=== PATIENT | male | born 1955 | race Caucasian/White ===

== ENCOUNTER 2024-02-14 15:37 | Emergency (ER) | payer OTHER, SELFPAY ==
[2024-02-14 15:47] VITALS: BP 132/83
[2024-02-14 16:07] LABS: % Basophils 0.7 % (0-2); % Eosinophils 1.7 % (0-6); % Immature Granulocytes 0.2 % (0-0.5); % Lymphocytes 22.3 % (20.5-51.1); % Monocytes 8.7 % (1.7-9.3); % Neutrophils 66.4 % (42.2-75.2); Absolute Basophils 0.1 10^3/uL (0-0.2); Absolute Eosinophils 0.1 10^3/uL (0-0.7); Absolute Lymphocytes 1.8 10^3/uL (1.2-3.4); Absolute Monocytes 0.7 10^3/uL (0.1-0.6); Absolute Neutrophils 5.4 10^3/uL (1.4-6.5); Hematocrit 46.7 % (39.0-52.0); Hemoglobin 16.7 g/dL (13.0-18.0); Mean Corp Hgb Conc. 35.8 g/dL (33.0-37.0); Mean Corpuscular Hgb 32.4 pg (27.0-31.0); Mean Corpuscular Volume 90.5 fL (80.0-94.0); Mean Platelet Volume 10.8 fL (7.4-10.4); Nucleated Red Blood Cells % 0 % (-); Platelet Count 242 10^3/uL (130-400); Red Blood Cell Count 5.16 10^6/uL (4.70-6.10); Red Cell Dist. Width 12.3 % (11.5-14.5); White Blood Cell Count 8.2 10^3/uL (4.8-10.8)
[2024-02-14 16:25] LABS: ALT (SGPT) 24 U/L (0-50); AST (SGOT) 30 U/L (17-59); Albumin 4.2 g/dl (3.5-5.0); Alkaline Phosphatase 88 U/L (38-126); Blood Urea Nitrogen 25 mg/dl (9-20); Calcium 9.6 mg/dl (8.4-10.2); Carbon Dioxide 23 mmol/L (22-30); Chloride 108 mmol/L (98-107); Glucose 103 mg/dl (70-99); Sodium 144 mmol/L (135-145); Total Bilirubin 0.5 mg/dl (0.2-1.3); eGFR > 60.00
[2024-02-14 16:29] LABS: NT-proBNP 378 pg/ml; Troponin I < 0.012 ng/ml
--- NOTE | 2024-02-14 17:08 | ED.GENMED ---
History of Present Illness
General
Chief Complaint: Cardiac Symptoms
Time Seen by Provider: 02/14/24 17:08
History of Present Illness
History of Present Illness:
HPI: Patient was sent here by cardiology for further evaluation. He has been having palpitations with some dizziness. He was at his business intelligence administrator office, Dr. Jose Angel Anderson, approximately 3 weeks ago. At that time there was some discussion about
ablation. He states that he has had a cardioversion in the past which failed. He is currently taking Lasix in addition to Toprol and no longer takes amiodarone.
EXAM:
GENERAL: Well appearing in no distress
HEENT: Moist oral mucosa
CARDIOVASCULAR: No murmurs, borderline tachycardic heart rate (rates frequently in the 80s to 110 range), irregular rhythm, No chest wall tenderness
PULMONARY: No respiratory distress, breath sounds are clear and equal
ABDOMEN: Soft with no peritoneal signs, no tenderness
NEUROLOGIC: Excellent strength all extremities, no coordination deficits
PSYCHIATRIC: Appropriate mental status, normal insight and judgement
EXTREMITIES: Nontender, no edema, moves all extremities equally, trace ankle edema, trace swelling at the toes with some hyperemia noted at the great toes, excellent DP pulses bilaterally with cap refill less than 1
SKIN: No rash, no lesions
TIME OF INITIAL ENCOUNTER: 5:10 PM
NUMBER AND COMPLEXITY OF PROBLEMS ADDRESSED AT THE ENCOUNTER
� Chronic conditions affecting care: Atrial fibrillation, CHF
� Acute Exacerbation and/or Progression of Chronic Illness: This is an acute problem
� Differential Diagnosis includes: Atrial fibrillation, gout, CHF
AMOUNT AND/OR COMPLEXITY OF DATA TO BE REVIEWED AND ANALYZED
� I performed an independent evaluation of and my interpretation is:
EKG: A-fib/flutter, ventricular rate of 105, PVC
CT:
X-rays:
Laboratory Studies: Chemistries relatively unremarkable however the BUN is 25, troponin and BNP unremarkable, normal white count, hemoglobin 16.7 up from 2020 was 12.8
Other:
� Review of other/old records: The patient was seen here in 2020 with dyspnea and was seen by Dr. Thomas at that time
� Clinical information was obtained by an independent historian: I spoke to the at bedside.
� Prescriptions/Medications Considered but not given: Considered Cardizem/cardioversion however ultimately deferred management to the business intelligence administrator
� Further testing considered but not performed:
RISK OF COMPLICATIONS AND/OR MORBIDITY OR MORTALITY OF PATIENT MANAGEMENT
� Social determinants of health affecting care: Lives at home
� Discussion with other providers: Discussed with Dr. Vazquez
� Escalation of care including admission/observation vs risk of discharge considered: Cardiology recommend doubling the Toprol he is to follow-up with Dr. Thomas by calling them tomorrow. He had been in atrial fibrillation on
last cardiology visit about 3 weeks ago. He is currently in atrial fibrillation/atrial flutter but rates frequently in the 80s while in the emergency department. No overwhelming signs for CHF. Will add steroids as he has been successfully treated
with this for gout in the past and he tells me that the pain feels similar to gout.
Past History
Past History
ED Past Medical History: None, Other (A fib) and Other (Nonischemic cardiomyopathy, PAF PA flutter status post PVI, hypertension, hyperlipidemia, GERD, obesity)
ED Past Surgical History: None
Social History
Tobacco: Non-smoker
Alcohol: Occasional
Personal:
Family History
Family History: Negative Diabetes, Hypertension or CAD
Phy Exam
Physical Exam
Physical Exam:
See HPI
Course
Orders/Labs/Results
Orders:
Orders
02/14/24 15:39
ECG [Electrocardiogram (*1)] Urgent
Reason for Study: Palpitations
EKG- Treatment ONCE
02/14/24 15:57
Complete Blood Count/With Diff Urgent
Comprehensive Metabolic Panel Urgent
NT-proBNP Urgent
Troponin I Urgent
02/14/24 17:43
Metoprolol Xl [Toprol Xl] 50 mg PO NOW STA
Prednisone [Deltasone] 50 mg PO NOW STA
Abnormal Lab Results
02/14/24
15:57
MCH 32.4 H pg
(27.0-31.0)
MPV 10.8 H fL
(7.4-10.4)
Absolute Monos (auto) 0.7 H 10^3/uL
(0.1-0.6)
Chloride 108 H mmol/L
(98-107)
BUN 25 H mg/dl
(9-20)
Glucose 103 H mg/dl
(70-99)
02/14/24 15:57
02/14/24 15:57
Vital Signs
Initial and Last Documented VS:
Initial Vital Signs
Temp Pulse Resp BP Pulse Ox
98.1 F 106 18 132/83 98
02/14/24 15:47 02/14/24 15:47 02/14/24 15:47 02/14/24 15:47 02/14/24 15:47
Last Documented Vital Signs
Temp Pulse Resp BP Pulse Ox
98.1 F 114 24 113/88 97
02/14/24 15:47 02/14/24 17:12 02/14/24 17:15 02/14/24 17:12 02/14/24 17:15
*Critical Care Note
Total Time (30-74mins, 75-104mins- exclusive of procedures): Not Applicable
ED Attending Note
-
Portions of this chart may have been created with voice recognition software.� Occasional wrong word or��sound alike� substitutions may have occurred due to the inherent limitations of voice recognition software.
Discharge Plan
Departure
Patient Disposition: Home (Routine Discharge)
Date of Disposition: 02/14/24
Time of Disposition: 17:48
Patient with high blood pressure during this ER visit?: Yes
Discharge Problem:
Atrial fibrillation
Prescriptions:
New
prednisone 50 mg tablet
50 mg PO DAILY Qty: 4 0RF
No Action
pantoprazole 40 MG tablet,delayed release (DR/EC)
40 mg PO DAILY Qty: 30 0RF
apixaban [Eliquis] 5 MG tablet
5 mg PO BID Qty: 60 0RF
atorvastatin 10 MG tablet
20 mg PO QPM
metoprolol succinate [Toprol XL] 50 MG tablet extended release 24 hr
50 mg PO DAILY
furosemide [Lasix] 40 MG tablet
40 mg PO DAILY Qty: 30 11RF
Referrals:
Bronson Thomas MD [Active] - Follow up in 2-3 days
Activity Restrictions/Additional Instructions:
You are in atrial tachycardia/atrial fibrillation currently. Your white blood cell count and hemoglobin levels are normal. Your basic chemistry levels are normal. Cardiac blood work shows no sign of heart attack or any signs of congestive heart
failure. Given the possibly of gout, we can try steroids for a few more days. I spoke to Dr. Vazquez, business intelligence administrator on-call for Dr. Thomas who recommends doubling the Toprol dosing�he recommends you take 1 in the morning 1 in the evening.
Please call Dr. Thomas's office to arrange follow-up.
Interventions
Interventions:
*Risk Screen - Suicide Last Done: 02/14/24 15:47
*Neglect/Abuse Screening Last Done: 02/14/24 15:47
Discharge Date and Time
Print Language: COLOMBIAN
[2024-02-14 17:12] VITALS: BP 113/88
[2024-02-14 17:54] VITALS: BP 113/88
[2024-02-14 18:04] VITALS: BMI 37.6
[2024-02-14] MEDS: DELTASONE 50 MG PO (18:04)
[2024-02-14] MEDS: TOPROL XL 50 MG PO (18:24)
== END 2024-02-14 18:34 | disposition home or self-care (01) ==
LOC: EMR 15:37
PROVIDERS: Student in an Organized Health Care Education/Training Program; EMERGENCY PHYSICIAN Emergency Medicine; FAMILY PHYSICIAN Family Medicine
DX: I48.91 Unspecified atrial fibrillation (principal); I11.0 Hypertensive heart disease with heart failure; I50.9 Heart failure, unspecified; E66.9 Obesity, unspecified; E78.00 Pure hypercholesterolemia, unspecified; K21.9 Gastro-esophageal reflux disease without esophagitis
CPT/HCPCS: 99283; 80053; 83880; 84484; 85025; 93005

== ENCOUNTER 2024-03-01 15:53 | Emergency (ER) | payer OTHER, SELFPAY ==
[2024-03-01 16:03] VITALS: BP 140/85
[2024-03-01] MEDS: ADACEL 0.5 ML IM (17:58)
[2024-03-01] MEDS: KEFLEX 500 MG PO (17:58)
--- NOTE | 2024-03-01 18:00 | ED.GENMED ---
History of Present Illness
General
Chief Complaint: Skin Surface Trauma
Source: patient
Exam Limitations: none
Time Seen by Provider: 03/01/24 16:36
Nursing documentation reviewed up to this point in time: agreed with
History of Present Illness
History of Present Illness:
69-year-old male past medical history of A-fib currently taking Eliquis no history of immunosuppression or diabetes. Presenting to the emergency department after hitting his left quiroz on a steel pen prior to arrival causing a laceration to his left
leg. He is able to control the bleeding with pressure prior to arrival.
Past History
Past History
ED Past Medical History: None, Other (A fib) and Other (Nonischemic cardiomyopathy, PAF PA flutter status post PVI, hypertension, hyperlipidemia, GERD, obesity)
ED Past Surgical History: None
Social History
Tobacco: Non-smoker
Alcohol: Occasional
Personal:
Family History
Family History: Negative Diabetes, Hypertension or CAD
Review of Systems
Review of Systems
Allergies reviewed?: Yes
All Other Systems: ROS reviewed and negative except as documented in HPI and ROS
Phy Exam
Physical Exam
Physical Exam:
GENERAL: Alert , in no apparent distress
EYE: pupils equal and reactive
NECK: Supple, no significant adenopathy.
ENT: o/p clr, mmm.
CARDIAC: Regular rate and rhythm .
LUNGS: Clear breath sounds bilaterally, no acute respiratory distress, no wheezes/rales/rhonchi
ABDOMEN: Soft, without focal tenderness, no r/g, no cvat
NEUROLOGICAL: Alert and oriented, no focal neuro deficits
SKIN: 15 cm U-shaped laceration, flap subcutaneous in depth no foreign body seen to the left anterior quiroz at the mid quiroz warm and dry, skin intact.
MUSCULOSKELETAL: No edema, well perfused.
PSYCH: Normal and appropriate interaction.
Course
Orders/Labs/Results
Orders:
Orders
03/01/24 16:48
Cephalexin Monohydrate [Keflex] 500 mg PO NOW STA
Tetanus/Diphth/Acelpertussis [Adacel] 0.5 ml IM .ONCE ONE
Vital Signs
Initial and Last Documented VS:
Initial Vital Signs
Temp Pulse Resp BP Pulse Ox
97.9 F 55 20 140/85 94
03/01/24 16:03 03/01/24 16:03 03/01/24 16:03 03/01/24 16:03 03/01/24 16:03
Last Documented Vital Signs
Temp Pulse Resp BP Pulse Ox
97.9 F 47 18 129/69 96
03/01/24 16:03 03/01/24 18:06 03/01/24 18:06 03/01/24 18:06 03/01/24 18:06
Procedures
Laceration Closure
Left Anterior Distal Leg:
Status of Wound: clean
Size of Wound in cm: 15
Description of Wound Edges: sharp
Preparation: cleaned with saline
Anesthesia: 1% Lidocaine with epi
Revision/Debridement: routine- no revision and irrigate-direct pressure
Wound exploration: explored to base- no FB and no tendon involvement
Type of Closure: single layer closure
Skin Closure Material: 3-0 nylon
Number of sutures: 21
MDM/Problems Addressed
MDM/Problems Addressed:
69year-old male presenting to the emergency department today with concerns of laceration to his left sided quiroz. This is a large flap 15 cm in total size. No foreign body seen cleaned thoroughly closed with 21 total stitches 18 simple interrupted
and 3 horizontal mattress stitches. Neurovascular intact distally. He started on antibiotics as well as given a tetanus shot. Return precautions given otherwise advised for removal in 2 weeks.
*Critical Care Note
Total Time (30-74mins, 75-104mins- exclusive of procedures): Not Applicable
ED Attending Note
-
Portions of this chart may have been created with voice recognition software.� Occasional wrong word or��sound alike� substitutions may have occurred due to the inherent limitations of voice recognition software.
Discharge Plan
Departure
Patient Disposition: Home (Routine Discharge)
Date of Disposition: 03/01/24
Time of Disposition: 18:17
Patient with high blood pressure during this ER visit?: No
Condition: Good
Covid-19: Not Applicable
Discharge Problem:
Laceration of quiroz
Instructions: Laceration Repair With Stitches (DC)
Prescriptions:
New
cephalexin 500 mg capsule
500 mg PO TID 3 Days Qty: 9 0RF
No Action
pantoprazole 40 MG tablet,delayed release (DR/EC)
40 mg PO DAILY Qty: 30 0RF
apixaban [Eliquis] 5 MG tablet
5 mg PO BID Qty: 60 0RF
atorvastatin 10 MG tablet
20 mg PO QPM
metoprolol succinate [Toprol XL] 50 MG tablet extended release 24 hr
50 mg PO DAILY
furosemide [Lasix] 40 MG tablet
40 mg PO DAILY Qty: 30 11RF
prednisone 50 mg tablet
50 mg PO DAILY Qty: 4 0RF
Referrals:
Chiki Mantilla DO [Family Provider] -
Activity Restrictions/Additional Instructions:
You came to the emergency department today with concerns of laceration to your chin. This was cleaned and closed with 21 total stitches. 18 simple interrupted and 3 horizontal mattress. Please keep the area clean covered and follow-up 2 days for
suture removal. Return to the emergency department for any worsening, new or concerning symptoms. Please also take Keflex 3 times daily for the next 3 days
Interventions
Interventions:
*Risk Screen - Suicide Last Done: 03/01/24 16:03
*General Assessment Last Done: 03/01/24 16:03
*Neglect/Abuse Screening Last Done: 03/01/24 16:03
ED-Skin Assessment Last Done: 03/01/24 16:51
Discharge Date and Time
Print Language: FAROESE
[2024-03-01 18:06] VITALS: BP 129/69
== END 2024-03-01 18:53 | disposition home or self-care (01) ==
LOC: EMR 15:53
PROVIDERS: EMERGENCY PHYSICIAN Emergency Medicine; FAMILY PHYSICIAN Family Medicine
DX: S81.812A Laceration without foreign body, left lower leg, initial encounter (principal); W22.8XXA Striking against or struck by other objects, initial encounter; I48.91 Unspecified atrial fibrillation; Z79.01 Long term (current) use of anticoagulants; I10 Essential (primary) hypertension; E78.5 Hyperlipidemia, unspecified; Z23 Encounter for immunization
CPT/HCPCS: 12005; 99282; 90471; 90715

== ENCOUNTER → 2024-08-15 09:16 | Outpatient (REF) | payer OTHER, SELFPAY ==
--- NOTE | 2024-08-15 10:08 | CARDSERVDEF ---
Echocardiogram with Definity completed after protocol screening completed. Allergies verified.
Patent IV site: 22g inserted in RAC - 1st attempt without incident
IV site flushed with 0.9% NaCl pre and post administration.
Diluted bolus method utilized to enhance visualization of ventricular arango.
Total volume given: 3.5 mL
Patient tolerated all procedures well without complications.
IV d/c'd and bandage applied after pressure held
== END ==
LOC: RCS 09:16
PROVIDERS: ATTENDING PHYSICIAN Internal Medicine; FAMILY PHYSICIAN Family Medicine
DX: I42.8 Other cardiomyopathies (principal); I50.32 Chronic diastolic (congestive) heart failure
CPT/HCPCS: 93307; Q9957

== ENCOUNTER 2025-01-26 19:38 | Emergency (ER) | payer OTHER, SELFPAY ==
[2025-01-26 19:39] VITALS: BP 130/85
[2025-01-26 20:00] VITALS: BMI 37.6
[2025-01-26 20:04] VITALS: BP 102/62
[2025-01-26 20:19] LABS: Hematocrit 42.8 % (39.0-52.0); Hemoglobin 15.1 g/dL (13.0-18.0); Mean Corp Hgb Conc. 35.3 g/dL (33.0-37.0); Mean Corpuscular Volume 91.8 fL (80.0-94.0); Nucleated Red Blood Cells % 0 % (-); Platelet Count 212 10^3/uL (130-400); Red Cell Dist. Width 13.4 % (11.5-14.5)
[2025-01-26 20:42] LABS: Alkaline Phosphatase 81 U/L (38-126); Blood Urea Nitrogen 26 mg/dl (9-20); Calcium 9.3 mg/dl (8.4-10.2); Carbon Dioxide 25 mmol/L (22-30); Chloride 109 mmol/L (98-107); Estimated Creatinine Clearance 82 ml/min; Glucose 102 mg/dl (70-99); Potassium 4.3 mmol/L (3.5-5.1); Sodium 139 mmol/L (135-145); eGFR > 60.00
[2025-01-26 20:43] LABS: ALT (SGPT) 32 U/L (0-50); AST (SGOT) 38 U/L (17-59); Albumin 4.0 g/dl (3.5-5.0); Total Protein 6.6 g/dl (6.3-8.2)
[2025-01-26 21:18] VITALS: BP 105/66
[2025-01-26 22:00] VITALS: BP 107/58
[2025-01-26 23:00] VITALS: BP 106/71
--- NOTE | 2025-01-26 23:39 | ED.CVA ---
History of Present Illness
General
Chief Complaint: CVA/TIA Symptoms
Source: patient and family
Time Seen by Provider: 01/26/25 20:15
Onset of Stroke Symptoms
Onset of symptoms known: Yes
Date of onset of symptoms: 01/25/25
History of Present Illness
History of Present Illness:
Note:
CHIEF COMPLAINT(S)
Sideways vision and dizziness.
HISTORY OF PRESENT ILLNESS
The patient is a 70-year-old male presenting with an unusual episode that occurred the previous day. While driving, he experienced a sudden alteration in vision, describing it as if his entire visual field turned sideways. The patient reported no
double vision or loss of vision, but the entire perspective shifted. This episode of visual disturbance resolved quickly within approximately 10 seconds. However, following the visual distortion, he felt dizzy and staggered, likening his sensation
to being inebriated. This dizziness persisted for approximately 15 minutes. After this event, as the day progressed, his symptoms improved. The patient also mentioned numbness and tingling in his left arm and has a known history of neuropathy in his
feet, experiencing these symptoms for several months. He is on blood thinners (Eliquis) and reports a baseline heart rate typically within the 50s to 60s. The current heart rate of 46 was noted to be slower than usual, likely due to the Metoprolol
50 mg dosage.
ADDITIONAL HISTORY OBTAINED FROM SOURCES OTHER THAN THE PATIENT
The patients spouse noted he had been more lethargic and experiencing shortness of breath over the last day or two prior to the visit.
CHRONIC MEDICAL CONDITIONS SIGNIFICANTLY AFFECTING CARE
The patient has a history of peripheral neuropathy and is on Metoprolol for heart rate management.
MEDICATIONS
The patient is currently taking Metoprolol 50 mg once daily and Eliquis (Apixaban).
REVIEW OF SYSTEMS
- Neurological: Reports dizziness, no headaches, no significant motor weakness.
- Cardiovascular: Slightly slow heart rate.
- Vision: Sideways vision episode.
- General: Lethargic recently, with shortness of breath.
PHYSICAL EXAM
General: Alert, no acute distress.
Skin: Warm, dry.
Head: Normocephalic, atraumatic.
Neck: Supple, trachea midline.
Eye Ears, nose, mouth, and throat: Oral mucosa moist.
Cardiovascular: Bradycardia with heart rate at 43, regular rhythm.
Respiratory: Respirations are slightly labored per family member, no acute distress noted during exam.
Gastrointestinal: Abdomen nondistended.
Back: Normal range of motion, normal alignment.
Musculoskeletal: Normal range of motion, normal strength.
Neurological: No focal neurological deficit observed, cranial nerves intact, normal [id number] and [id number] test. No pronator drift.
Psychiatric: Cooperative, appropriate mood & affect.
PROBLEM LIST
Acute:
- Sideways vision episode
- Dizziness
- Shortness of breath
- Bradycardia
Chronic:
- Peripheral neuropathy
PLAN
- Obtain a head CT scan to evaluate for any possible neurological causes of the visual disturbance.
- Perform laboratory tests, including checking hemoglobin levels, to assess for anemia or other contributory factors.
- Monitor heart rate and adjust Metoprolol dosing if needed.
- Evaluate and manage patient symptoms with a potential cardiologic and neurologic basis.
DIFFERENTIAL DIAGNOSIS
The Differential Diagnosis includes, in no particular order and is not limited to:
- Transient ischemic attack
- Posterior circulation stroke
- Vestibular dysfunction
- Ocular muscle dysfunction
- Migraine with aura
- Drug side effects, particularly from Metoprolol
- Cardiac arrhythmia
- Visual field defect from ophthalmological cause
- Inner ear disorder
- Anxiety or stress-induced symptoms
Disposition:
SUMMARY OF ENCOUNTER
The patient is a 70-year-old male who presented to the emergency department after experiencing an episode while driving the day before. He reported a sudden distortion in vision and dizziness. Initial evaluation was conducted, including laboratory
tests and imaging. Laboratory tests, such as a complete blood count (CBC) and chemistry panel including creatinine and electrolytes, were normal. A head CT scan showed no acute injury or abnormalities. An electrocardiogram (EKG) revealed sinus
bradycardia without acute ischemic changes. The patient has a history of bradycardia associated with his current medications.
DISPOSITION
Discharge.
ASSESSMENT
The patients episode could have been related to vertigo; however, there was no solid evidence to support vertigo as a diagnosis. Given his anticoagulated status, transient ischemic attack (TIA) or cerebrovascular accident (CVA) was not suspected.
The patient was instructed to follow up with his primary care physician (PCP) for further evaluation.
PLAN
Given the patients symptoms and findings, it was planned to initiate low-dose aspirin (baby aspirin) until follow-up with his PCP. The patient was advised to seek further evaluation and management from his primary care physician. Patient will also
drop his Toprol to 25 mg daily in light of his bradycardia.
INDEPENDENT REVIEW OF LABS AND INTERPRETATION OF TESTS
- My independent review of CBC is normal.
- My independent review of chemistry indicates normal creatinine and electrolytes, including normal sodium and potassium.
EMERGENCY TREATMENTS ADMINISTERED
No medications were administered in the emergency department, but baby aspirin is advised until follow-up with PCP.
MANAGEMENT OF THE PATIENTS CARE WAS DISCUSSED WITH
Follow-up care to be managed by the patients primary care physician (PCP).
REASSESSMENT
Upon reassessment, the patient appeared well with a normal cerebellar exam and normal neurological assessment.
PATIENT EDUCATION AND COUNSELING
The patient was counseled about the importance of follow-up with his PCP for further management and evaluation. He was advised to take baby aspirin as an interim preventive measure and to monitor his symptoms.
FOLLOW-UP INSTRUCTIONS
The patient is instructed to follow up with his primary care physician for further evaluation and management.
MEDICATION RECONCILIATION
Advised to begin baby aspirin until follow-up with primary care.
MEDICAL DECISION MAKING
- Number and Complexity of Problems Addressed: Chronic conditions affecting care include peripheral neuropathy. The differential diagnosis considered transient ischemic attack, posterior circulation stroke, vestibular dysfunction, ocular muscle
dysfunction, migraine with aura, drug side effects, particularly from metoprolol, cardiac arrhythmia, visual field defect from ophthalmological cause, inner ear disorder, and anxiety or stress-induced symptoms.
- Data:
Category 1:
- My independent interpretation of head CT is no acute injury or abnormality.
- My independent interpretation of EKG shows sinus bradycardia with no acute ischemic changes.
Category 2:
- Clinical information was supplemented with input from the patients spouse, who reported increased lethargy and shortness of breath over the past few days.
Category 3:
- Discussion of management entailed advising the patient to initiate baby aspirin and arrange follow-up care with his PCP.
- Risk: Consideration of Admission/Observation: Escalation of care including admission/observation was considered given the complexity and risk of the patients presenting complaint, exam findings, and/or their underlying comorbidities. However,
ultimately I feel the patient is safe for outpatient management with close follow-up. Reasoning: Work-up reassuring, does not reveal any acute life/organ threatening processes, patients symptoms well controlled upon reevaluation, reexamination is
reassuring, vitals are stable, patient agreeable with discharge, reliable for follow-up.
DIAGNOSIS
- Dizziness (R42)
- Sinus bradycardia (R00.1)
- Visual disturbance, unspecified (H53.9)
Past History
Past History
ED Past Medical History: None, Other (A fib) and Other (Nonischemic cardiomyopathy, PAF PA flutter status post PVI, hypertension, hyperlipidemia, GERD, obesity)
ED Past Surgical History: None
Social History
Tobacco: Non-smoker
Alcohol: Occasional
Personal:
Family History
Family History: Negative Diabetes, Hypertension or CAD
Phy Exam
Physical Exam
Physical Exam:
.
Course
Orders/Labs/Results
Orders:
Orders
01/26/25 20:04
Electrocardiogram (*1) Urgent
Reason for Study: TIA/Stroke
EKG- Treatment ONCE
01/26/25 20:10
Complete Blood Count/With Diff Urgent
Comprehensive Metabolic Panel Urgent
01/26/25 20:46
CT Head W/o Iv Contrast Urgent
Comment:
Reason For Exam: vision changes
Abnormal Lab Results
01/26/25
20:10
RBC 4.66 L 10^6/uL
(4.70-6.10)
MCH 32.4 H pg
(27.0-31.0)
MPV 11.2 H fL
(7.4-10.4)
Absolute Monos (auto) 0.8 H 10^3/uL
(0.1-0.6)
Monocytes % 12.6 H %
(1.7-9.3)
Chloride 109 H mmol/L
(98-107)
BUN 26 H mg/dl
(9-20)
Glucose 102 H mg/dl
(70-99)
01/26/25 20:10
01/26/25 20:10
Vital Signs
Initial and Last Documented VS:
Initial Vital Signs
Temp Pulse Resp BP Pulse Ox
98.3 F 52 13 130/85 97
01/26/25 19:39 01/26/25 19:39 01/26/25 19:39 01/26/25 19:39 01/26/25 19:39
Last Documented Vital Signs
Temp Pulse Resp BP Pulse Ox
98.3 F 49 22 106/71 93
01/26/25 19:39 01/26/25 23:00 01/26/25 23:00 01/26/25 23:00 01/26/25 23:00
*Pulse Oximetry
SaO2: 93
Oxygen Mode of Delivery: Room air
Patient hypoxic: no
*Critical Care Note
Total Time (30-74mins, 75-104mins- exclusive of procedures): Not Applicable
ED Attending Note
-
Portions of this chart may have been created with voice recognition software.� Occasional wrong word or��sound alike� substitutions may have occurred due to the inherent limitations of voice recognition software.
Discharge Plan
Departure
Patient Disposition: Home (Routine Discharge)
Date of Disposition: 01/26/25
Time of Disposition: 23:40
Patient with high blood pressure during this ER visit?: No
Discharge Problem:
Change in vision
Instructions: Dizziness in adults - ED (DC)
Prescriptions:
No Action
pantoprazole 40 MG tablet,delayed release (DR/EC)
40 mg PO DAILY Qty: 30 0RF
apixaban [Eliquis] 5 MG tablet
5 mg PO BID Qty: 60 0RF
atorvastatin 10 MG tablet
20 mg PO QPM
metoprolol succinate [Toprol XL] 50 MG tablet extended release 24 hr
50 mg PO DAILY
furosemide [Lasix] 40 MG tablet
40 mg PO DAILY Qty: 30 11RF
prednisone 50 mg tablet
50 mg PO DAILY Qty: 4 0RF
cephalexin 500 mg capsule
500 mg PO TID 3 Days Qty: 9 0RF
Referrals:
Chiki Mantilla DO [Family Provider, Family Practice]
Activity Restrictions/Additional Instructions:
Vision distortion
Possible vertigo
Please see your doctor in the next 1 week for follow-up and reevaluation. Return immediately for chest pain, shortness of breath, dizziness, vision changes, vision loss, numbness, tingling, motor weakness or any other concerns
Please take 81 mg daily as discussed
Please also decrease your metoprolol dose to 25 mg daily until seen by your doctor
Interventions
Interventions:
*Risk Screen - Suicide Last Done: 01/26/25 19:39
*General Assessment Last Done: 01/26/25 19:39
*Neglect/Abuse Screening Last Done: 01/26/25 19:39
*ED- Fall Risk Assessment Last Done: 01/26/25 23:15
*ED COVID-19 Vaccine History Last Done: 01/26/25 19:39
ED- Pulmonary Assessment Last Done: 01/26/25 20:00
ED- Neurological Assessment Last Done: 01/26/25 20:00
ED- Cardiac Assessment Last Done: 01/26/25 20:00
ED Swallowing Screen Last Done: 01/26/25 20:00
Discharge Date and Time
Print Language: ANGUILLAN
== END 2025-01-26 23:50 | disposition home or self-care (01) ==
LOC: EMR 19:38
PROVIDERS: EMERGENCY PHYSICIAN Emergency Medicine; FAMILY PHYSICIAN Family Medicine
DX: R42 Dizziness and giddiness (principal); E66.9 Obesity, unspecified; E78.00 Pure hypercholesterolemia, unspecified; I10 Essential (primary) hypertension; I42.8 Other cardiomyopathies; I48.0 Paroxysmal atrial fibrillation; I48.92 Unspecified atrial flutter; Z79.01 Long term (current) use of anticoagulants; Z79.899 Other long term (current) drug therapy
CPT/HCPCS: 99284; 70450; 80053; 85025; 93005

== ENCOUNTER 2025-01-29 13:46 | Inpatient (IN) | payer OTHER, SELFPAY ==
[2025-01-29] VITALS (9 sets, daily range): BP systolic 105–152; BP diastolic 57–102; PULSE 48–57; BMI 36.9; BMI 36.6
[2025-01-29 11:32] LABS: Hematocrit 49.0 % (39.0-52.0); Hemoglobin 17.1 g/dL (13.0-18.0); Mean Corp Hgb Conc. 34.9 g/dL (33.0-37.0); Mean Corpuscular Volume 93.7 fL (80.0-94.0); Nucleated Red Blood Cells % 0 % (-); Platelet Count 202 10^3/uL (130-400); Red Cell Dist. Width 13.3 % (11.5-14.5)
[2025-01-29 11:57] LABS: ALT (SGPT) 35 U/L (0-50); AST (SGOT) 38 U/L (17-59); Albumin 4.8 g/dl (3.5-5.0); Alkaline Phosphatase 100 U/L (38-126); Blood Urea Nitrogen 27 mg/dl (9-20); Carbon Dioxide 26 mmol/L (22-30); Chloride 108 mmol/L (98-107); Potassium 4.4 mmol/L (3.5-5.1); Sodium 141 mmol/L (135-145); Total Protein 7.8 g/dl (6.3-8.2)
[2025-01-29 12:09] LABS: Glucose 120 mg/dl (70-99)
--- NOTE | 2025-01-29 12:10 | ED.GENMED ---
History of Present Illness
General
Chief Complaint: Dizziness
Source: patient, spouse and family
Time Seen by Provider: 01/29/25 11:30
History of Present Illness
History of Present Illness:
This patient is a 70-year-old male presents here accompanied by his and daughter. He was seen here on the with complaints of feeling like his vision went 'sideways'. This was very short-lived it is, but afterwards he felt dizzy and like
he was 'staggering'. This lasted for about 15 minutes and then resolved completely. Patient went to bed last night approximately 10 PM and felt his normal self without any symptoms. He then woke at approximately 1 AM to use the restroom and noted
that he was again staggering as he was walking describes a sensation of spinning. He did go back to bed, but not with resolution of symptoms. When he awoke at approximately 6:30 AM, the symptoms continued. He is slightly nauseous which is now
resolved but no vomiting. He denies headache, neck pain, recent trauma or falls. He does have intermittent numbness and tingling in the left arm which he says that he has had for months, comes and goes, without specific provoking or relieving
factors. He denies clumsiness, headache, focal weakness, change in speech, trouble swallowing, double vision, blurry vision, or other complaints. Of note, patient was seen in the emergency department on the for the symptoms, was noted to be
mildly bradycardic and was advised to reduce his beta-adi dose. His CAT scan was reportedly unremarkable at that time.
Past History
Past History
ED Past Medical History: Other (A fib) and Other (Nonischemic cardiomyopathy, PAF PA flutter status post PVI, hypertension, hyperlipidemia, GERD, obesity)
ED Past Surgical History: Cardiac
Social History
Tobacco: Non-smoker
Alcohol: Occasional
Drug: None
Personal:
Living: with family
Family History
Family History: Negative Diabetes, Hypertension or CAD
Phy Exam
Physical Exam
Physical Exam:
GENERAL: Alert , in no apparent distress
EYE: pupils equal and reactive, no photophobia, no nystagmus, EOMI
NECK: Supple, no significant adenopathy, no bruit noted.
ENT: o/p clr, mmm.
CARDIAC: Regular rate and rhythm .
LUNGS: Clear breath sounds bilaterally, no acute respiratory distress, no wheezes/rales/rhonchi
ABDOMEN: Soft, without focal tenderness, no r/g, no cvat
NEUROLOGICAL: Alert and oriented, no focal neuro deficits, motor 5 out of 5, sensory intact, cranial nerves II through XII intact, [id number] normal. Upon walking here in the ER, patient noted he felt very off balance but is able to walk
without assistance
SKIN: Warm and dry, skin intact.
MUSCULOSKELETAL: No edema, well perfused.
PSYCH: Normal and appropriate interaction.
Course
Orders/Labs/Results
Orders:
Orders
01/29/25 10:58
ECG [Electrocardiogram (*1)] Urgent
Reason for Study: Syncope
Other Reason for Exam: bradycardia
EKG- Treatment ONCE
01/29/25 11:21
CBC/With Diff [Complete Blood Count/With Diff] Urgent
Comprehensive Metabolic Panel Urgent
Glycohemoglobin (HgbA1c) Urgent
TSH Reflex To Free T4 Routine
Comment: ADD ON
01/29/25 11:28
Atropine Sulfate [Atropine 0.1 mg/ml Syringe] 1 mg .ROUTE .STK-MED ONE
01/29/25 13:11
Admit/Transfer Patient As Directed
Co-Sign Provider:
Level of Care: Inpatient admission
Assign to:: Telemetry
Physician / Group: julien
Diagnosis: dizzy
Reason for Telemetry: Arrhythmia
Date to Stop Telemetry: 02/01/25
Time to Stop Telemetry: 11:00
Reason for Hospitalization: bradycardia
dizzy r/o cva
Expected length of stay greater than two midnights?: Yes
ELOS- Estimated Length of Stay in days: 3
I certify the patient meets the requirements for IP care: Yes
01/29/25 13:12
PRN Pain Medication Management As Directed
May give lesser potent ordered pain med per pt: Yes
preference::
Protocol:: Medication orders for pain may be administered in a
manner that supports deferring to patient preference
when the pt is:
- Requesting an ordered lesser potent pain medication.
Least to most potent pain medications are defined
as: acetaminophen < NSAID < tramadol < opioids
(morphine, oxycodone, hydromorphone).
- Requesting a lesser dose of the same medication IF
ORDERED.
- Requesting a less intrusive route of administration
if both routes are prescribed by the provider (PO <
IV).
01/29/25 13:14
Code Status As Directed
Resuscitation Status: Full Code
01/29/25 13:16
CT Head & Neck Angio W/wo IV Routine
Reason For Exam: stroke/TIA, dizziness, vertigo
01/29/25 13:38
Add On- LAB Routine
Tests Added?: TSH with reflex to free T4
01/29/25 15:53
Acetaminophen [Tylenol/Feverall] 650 mg RECTAL Q4HPRN PRN
Acetaminophen [Tylenol] 650 mg PO Q4HPRN PRN
01/29/25 15:53
CARDIOLOGY CONSULT Routine
Consulting Provider: Jaison Dupont
Was physician already notified: Yes
Case Management Consult ONCE
Case Management Consult: Discharge Planning
Comment: stroke/tia
DIETARY IP CONSULT Routine
Reason for Consult: stroke/TIA
NEUROLOGY CONSULT Urgent
Consulting Provider: Myriam Bullard
Was physician already notified: Yes
Vp Of Technology Urgent
Activity As Directed
Activity Level: As Tolerated
NIH Stroke Scale As Directed
Directions: Per protocol
Comment: every shift and with any change in condition or mental status
Neurological Checks As Directed
Frequency: q4h
Additional Instructions:: q4h x 24h upon admission to the floor, then qshift & with any change in condition
and mental status
Orthostatic Vital Signs As Directed
Orthostatic VS Frequency: BID
Patient Education As Directed
Type: Stroke education packet
Comment: provide to patient and family
Pneumatic Compression Sleeves As Directed
Type: Thigh high
Vital Signs As Directed
Frequency: Per unit guidelines
Ot Eval And Treat Routine
Pt Eval And Treat Routine
Activity Level: As Tolerated
DX Deep Vein Thrombosis Video Routine
01/29/25 18:00
Allopurinol [Zyloprim] 100 mg PO QPM
01/29/25 20:00
Apixaban [Eliquis] 5 mg PO BID
01/29/25 22:00
Gabapentin [Neurontin] 600 mg PO HS
01/30/25 07:22
MR Brain Without Contrast Routine
Reason For Exam: stroke/TIA
Recent pill cam endoscopy?: No
01/30/25 07:54
Cardiovascular Evaluation IN AM
01/30/25 08:00
Allopurinol [Zyloprim] 300 mg PO DAILY
Colchicine 0.6 mg PO DAILY
Furosemide [Lasix] 40 mg PO DAILY
Pantoprazole [Protonix] 40 mg PO DAILY
02/01/25 11:00
DC Protocol for Telemetry ONCE
Abnormal Lab Results
01/29/25
11:21
MCH 32.7 H pg
(27.0-31.0)
MPV 11.2 H fL
(7.4-10.4)
Absolute Lymphs (auto) 1.0 L 10^3/uL
(1.2-3.4)
Chloride 108 H mmol/L
(98-107)
BUN 27 H mg/dl
(9-20)
Glucose 120 H mg/dl
(70-99)
01/29/25 11:21
01/29/25 11:21
Vital Signs
Initial and Last Documented VS:
Initial Vital Signs
Temp Pulse Resp BP Pulse Ox
97.6 F 43 16 152/81 98
01/29/25 10:56 01/29/25 10:56 01/29/25 10:56 01/29/25 10:56 01/29/25 10:56
Last Documented Vital Signs
Temp Pulse Resp BP Pulse Ox
97.3 F 47 16 126/74 96
01/31/25 07:00 01/31/25 07:00 01/31/25 07:00 01/31/25 07:00 01/31/25 07:00
*Pulse Oximetry
SaO2: 98
Oxygen Mode of Delivery: Room air
Patient hypoxic: no
*Critical Care Note
Total Time (30-74mins, 75-104mins- exclusive of procedures): Not Applicable
Update Note
Update Note:
Patient presents to the Emergency Department with _dizziness, room spinning
Number and Complexity of Problems Addressed at the Encounter
� Chronic conditions affecting care:
� Acute Exacerbation and/or Progression of Chronic Illness:
� Differential Diagnosis includes: But not limited to TIA, CVA, vestibular neuritis, otolith, BPV, etc. etc.
Amount and/or Complexity of Data to be Reviewed and Analyzed
� I performed an independent evaluation of and my interpretation is:
EKG: Read by me, sinus bradycardia with PACs, no acute ischemia
CT:
Xrays:
Laboratory Studies: Generally unremarkable
Other:
� Review of other/old records reveals: Discharge summary from January 2021 reviewed patient was admitted with heart failure, AUDREY, A-fib. I also reviewed CAT scan from January 26 of this year which was unremarkable
� Clinical information was obtained by an independent historian:
� Prescriptions/Medications Considered but not given:
� Further testing considered but not performed:
Risk of Complications and/or Morbidity or Mortality of Patient Management
� Social determinants of health affecting care:
� Discussion with other providers (PCP, Hospitalists, Consultants, etc):
� Escalation of care including admission/observation vs risk of discharge considered: Patient with noted bradycardia here but blood pressure stable. He is describing symptoms suggestive of vertigo, need to rule out posterior
circulation process. CT from a few days ago was unremarkable. Recommend MRI. He is obviously not a TNK/IAT candidate given low NIH and timing as well as his use of anticoagulation. Case discussed with hospitalist for admission, telemetry
monitoring, MR, etc.
ED Attending Note
-
Portions of this chart may have been created with voice recognition software.� Occasional wrong word or��sound alike� substitutions may have occurred due to the inherent limitations of voice recognition software.
Discharge Plan
Departure
Patient Disposition: Admit
Date of Disposition: 01/29/25
Time of Disposition: 12:43
Admit to: Telemetry
Presentation/result/management discussed w/ accepting MD/DO: Hospitalist
Discharge Problem:
Bradycardia, Vertigo
Interventions
Interventions:
*Risk Screen - Suicide Last Done: 01/29/25 11:14
*General Assessment Last Done: 01/29/25 11:17
*Neglect/Abuse Screening Last Done: 01/29/25 11:15
*ED- Fall Risk Assessment Last Done: 01/29/25 11:15
*ED COVID-19 Vaccine History Last Done: 01/29/25 11:14
*Nursing Disposition Last Done: 01/29/25 16:30
ED- Neurological Assessment Last Done: 01/29/25 12:24
ED- Cardiac Assessment Last Done: 01/29/25 12:25
ED Swallowing Screen Last Done: 01/29/25 12:45
Discharge Date and Time
Discharge Date/Time: 01/29/25 16:00
[2025-01-29 12:23] LABS: Calcium 9.8 mg/dl (8.4-10.2); Estimated Creatinine Clearance 88 ml/min; eGFR > 60.00
--- NOTE | 2025-01-29 12:46 | HPS.HSE ---
Addendum entered and electronically signed by Calin Burger MD 01/29/25 13:49:
This is an addendum to H&P written by Lynn Leach on 01/29/2025. �Patient seen and examined dependently with TRAINING DESIGNER.
70-year-old male past medical history of persistent atrial fibrillation on Eliquis, bradycardia, diastolic CHF, hypertension, GERD, hyperlipidemia, chronic lower extremity neuropathy, presenting with vision going sideways, with staggering gait
lasting for 15 minutes. �He came to the emergency room on 01/[address] head which was negative and discharged. �He was noted to be bradycardic and beta-adi dose was recommended to be decreased.
He had symptoms again at 1 AM with resolution after going back to bed. �He currently does have vertigo worse when he sits up. �He has intermittent numbness and tingling of the left arm, ongoing for months. �Denies headache, focal weakness she speech
changes, swallowing difficulty, double vision or blurry vision.
Vital signs show bradycardia as low as 39. �EKG shows sinus bradycardia heart rate 51 with PACs.
Patient with acute vertigo, as well as ongoing numbness and tingling of the left arm. �Check CTA head and neck. �Needs MRI brain to evaluate for CVA. Neurology consulted. Continue Eliquis.�
Patient also with bradycardia, appears chronic as was also noted in 2020 but worse at this time.� Could be contributing to symptoms.� Stop metoprolol which could be the cause versus tachybradycardia syndrome. �Telemetry monitoring. �Check
orthostatic vital signs. �Cardiology consulted.
Original Note:
Family Physician
-
Family Physician: NOT KNOW UNKNOWN - PT DOES
Chief Complaint
-
dizzy
History of Present Illness
70-year-old male with PMH for atrial fib, cardiomyopathy, HTN, HLD, GERD presents with dizzy. he woke up last night to use the bathroom but he felt dizzy, felt like the room was spinning. he staggered himself to the bathroom by holding the wall and
things around him. he felt the same way throughout the night. today he woke up dizzy and nauseated. he did not vomit. denied abdominal pain, diarrhea. denied CRAWFORD. noted blurry vision which resolved. he has chronic numbness and tingling to his left
arm. Patient denied cough, congestion, fever, chills. Patient denied chest pain or short of breath. Patient denied any dysuria hematuria.
Patient was evaluated in the ER 2 days ago for the same symptoms. CT at that time was normal. Admitting for further management
Medical History
Past Medical History
Past Medical History: Reports Other
Additional Past Medical History:
Cardiomyopathy, A-fib, hyperlipidemia, spinal stenosis, sleep apnea,
Past Surgical History: Reports Other
Additional Past Surgical History:
Meniscus repair, left shoulder repair, cardiac ablation, left knee replacement, broken right wrist surgery, plantar fasciitis surgery
Social History
Tobacco: Non-smoker
Alcohol: None
Drug: None
Personal:
Living: With Family
Family History
Family History: Not pertinent
Allergies / Home Medications
Allergies reflects when Allergies were last updated in [employer].
Home Medications with original date entered in [employer]
Allergy/Medication List:
Allergies
Allergy/AdvReac Type Severity Reaction Status Date / Time
No Known Allergies Allergy Verified 01/29/25 10:58
Home Medications
apixaban 5 mg tablet (Eliquis) 5 mg PO BID #60 tabs 02/15/19
pantoprazole 40 mg tablet,delayed release 40 mg PO DAILY #30 tabs 02/15/19
atorvastatin 10 mg tablet 10 mg PO QPM 06/13/19
metoprolol succinate 50 mg tablet,extended release 24 hr (Toprol XL) 50 mg PO HS 06/13/19
furosemide 40 mg tablet (Lasix) 40 mg PO DAILY #30 tabs 01/13/21
allopurinol 100 mg tablet 100 mg PO QPM 01/29/25
allopurinol 300 mg tablet 300 mg PO DAILY 01/29/25
colchicine 0.6 mg tablet 0.6 mg PO DAILY 01/29/25
gabapentin 300 mg capsule 600 mg PO HS 01/29/25
Review of Systems
-
Constitutional: Reports No Symptoms
EENT: Reports No Symptoms
Respiratory: Reports No Symptoms
Cardiac: Reports No Symptoms
Abdomen/GI: Reports Nausea
: Reports No Symptoms
Musculoskeletal: Reports No Symptoms
Skin: Reports No Symptoms
Neurological: Reports Dizzy and Numbness
Endocrine: Reports No Symptoms
Hematologic/Lymphatic: Reports No Symptoms
Psych: Reports No Symptoms
Physical Exam
Vital Signs
Vital Signs
Temp Pulse Resp BP Pulse Ox
97.6 F 39 17 120/57 98
01/29/25 10:56 01/29/25 12:15 01/29/25 12:15 01/29/25 12:00 01/29/25 12:15
Physical Exam
General: Well Developed, Well Nourished and No Apparent Distress
HEENT: NormoCephalic, Moist mucous membranes and Atraumatic
Respiratory: Clear
Cardiac: S1/S2 and Regular Rhythm; No Murmur or Rub
GI: Soft, Non Tender, Non Distended and Normal Bowel Sounds; No Organomegaly
Rectal: Deferred by Provider
Musculoskeletal: No Clubbing, No Cyanosis and No Edema
Skin: No Rash
Neuro: AO x 3 and Nonfocal/grossly intact
Psych: Calm
Laboratory Results
-
01/29/25 11:21
01/29/25 11:21
Laboratory Results
Total Bilirubin 0.8 mg/dl (0.2-1.3) 01/29/25 11:21
AST 38 U/L (17-59) 01/29/25 11:21
ALT 35 U/L (0-50) 01/29/25 11:21
Alkaline Phosphatase 100 U/L (38-126) 01/29/25 11:21
Data Reviewed
-
CT Scan: Report Reviewed by me
Lab Data: Labs Reviewed by me
Impression/Plan
-
#imbalance/`dizzy rule out CVA
-CT with no acute findings
-obtain MRI and CTA
-obtain orthostatics
-neurology consulted
-obtain a1c/lipid profile
-neurology consulted
#bradycardia
-EKg with sinus bradycardia with supraventricular complexes.
-hold metoprolol
-eliquis continued
#HX AF , s/p ablation
- cont Eliquis
#GOUT
-allopurinol,colchicine continued
#cardiomyopathy
-Lasix continued
#neuropathy
-gabapentin continued
#GERD
-PPI continued
#Hyperlipidemia- cont atorvastatin
#DVT prophylaxis
-eliquis
#CODE status
-full code
--- NOTE | 2025-01-29 13:40 | CON.CAR ---
Addendum entered and electronically signed by Jaison Dupont MD 01/29/25 16:13:
I saw and examined the patient.
The SHOWER SCREEN INSTALLER's note was reviewed and I agree with the note.
Comment:
70-year-old man with heart failure with recovered EF, paroxysmal atrial fibrillation on Eliquis, and right bundle branch block who presents with dizziness. A few days ago he had visual changes while driving followed by dizziness. He presented to
the ER on 01/[address] was unremarkable. He was bradycardic and metoprolol was decreased from 50 mg daily to 25 mg daily. He presented again yesterday after an episode of 'head spinning' overnight. He reports he also has some
lightheadedness with which is worse with walking. I reviewed his telemetry which shows sinus bradycardia, HR in the 40s. He reports that his heart rate is usually in the 50s�60s. His symptoms have improved since admission. He has infrequent
paroxysms of A-fib and is typically symptomatic. Does not check his heart rate.
Physical exam is notable for slow rate, regular rhythm, no murmurs, clear lungs, and no lower extremity edema
Labs notable for normal TSH and unremarkable CBC/BMP
His dizziness could be related to sinus bradycardia but sounds more consistent with vertigo. We will hold his metoprolol and trend telemetry overnight. He had a normal head/neck CTA. Brain MRI is also planned.
Original Note:
Consultation
Consultation Request
Date/Time Consultation Requested: 01/29/25 1324
Date/Time Consultation Performed: 01/29/25 1330
Requesting Provider: Lynn Leach
Performing Provider: Brittani SALAZAR for Dr. Dupont
Reason for Consultation: bradycardia
Medical History
-
Chief Complaint: dizziness
History of Present Illness:
70 y/o male (patient of Dr. Thomas) with resolved NICM, chronic HFpEF, AFIB/flutter with hx ablation 2019 (on Eliquis), hypertension, dyslipidemia, obesity, RBBB, mild aortic root/ascending aortic ectasia (4.0 cm), KRISTINE (does not tolerate CPAP),
GERD, and obesity who is here for evaluation. Briefly, about 2 days ago, he developed sudden onset vision change while he was driving- everything looked 'sideways' for about 10 seconds. Afterward, he had some dizziness, but then it resolved. Then
last night around 1-2 AM, he woke up and head was spinning. He then staggered to the bathroom. He generally felt light-headed. He went back to bed and woke up and still felt like things were spinning so came to the ER. Currently, he just feels
mildly lightheaded. He does think it is worse with ambulation. Neurology is on the case and imaging is pending. Of note, he came to the ER 01/26/[address] was negative, after his first symptoms above. His metoprolol was decreased to 25 mg daily
due to bradycardia- Last dose was last night. His HR has been in the 40's and 50's here in sinus, PAC's noted. He is in no distress at the time of my assessment.
Past Medical History
Past Medical History: Arrhythmias, CHF, GERD, HTN, Hypercholesterolemia and Other (as above)
Social History
Tobacco: Non-Smoker
Family History
Family History: CAD (brother)
Allergies / Home Medications
Allergy/AdvReac Type Severity Reaction Status Date / Time
No Known Allergies Allergy Verified 01/29/25 10:58
�Medication �Instructions �Recorded �Confirmed �Type
apixaban 5 mg tablet (Eliquis) 5 mg PO BID #60 tabs 02/15/19 01/29/25 Rx
pantoprazole 40 mg tablet,delayed 40 mg PO DAILY #30 tabs 02/15/19 01/29/25 Rx
release
atorvastatin 10 mg tablet 10 mg PO QPM 06/13/19 01/29/25 History
metoprolol succinate 25 mg 25 mg PO HS 06/13/19 01/29/25 History
tablet,extended release 24 hr
(Toprol XL)
furosemide 40 mg tablet (Lasix) 40 mg PO DAILY #30 tabs 01/13/21 01/29/25 Rx
allopurinol 100 mg tablet 100 mg PO QPM 01/29/25 01/29/25 History
allopurinol 300 mg tablet 300 mg PO DAILY 01/29/25 01/29/25 History
colchicine 0.6 mg tablet 0.6 mg PO DAILY 01/29/25 01/29/25 History
gabapentin 300 mg capsule 600 mg PO HS 01/29/25 01/29/25 History
Review of Systems
-
History Source: Patient
All other systems: Negative unless noted
Neurological: Dizzy and Other (vision and spinning issues as noted)
Physical Exam
Vital Signs
Temp Pulse Resp BP Pulse Ox
97.6 F 39 17 120/57 98
01/29/25 10:56 01/29/25 12:15 01/29/25 12:15 01/29/25 12:00 01/29/25 12:15
Lab Results
01/29/25 11:21
01/29/25 11:21
Physical Exam
General: Well Developed, Well Nourished and No Apparent Distress
HEENT: Normocephalic and Anicteric
Respiratory: Clear and Non Labored Respirations
Cardiac: Regular Rhythm (SB)
Musculoskeletal: No Edema
Skin: Warm and Dry
Neuro: AO x 3
Psych: Calm
Impression / Plan
-
Dizziness/LH, vision changes, room spinning:
-neuro consulted; CTA and MRI pending
-obtain echo, follow telemetry
-check orthos
-vision changes and room spinning don't sound consistent with symptomatic bradycardia, but dizziness/LH could be- see below
Bradycardia:
-BB held
-all sinus, as well as PAC's so far. HR 40's-50's in ER. He does have a history of sinus bradycardia on my review of EKG's, as well as RBBB.
-check thyroid studies
-follow telemetry and assess for need for PPM (he also has PAF, so ideally would like some BB on board)
PAF/flutter:
-stable in SR, metoprolol held. It sounds like he still has had PAF/AFL since ablation 2019.
-continue Eliquis for OAC -[id number] score is at least 3 for age, CHF, HTN
HFpEF:
-chronic, stable
-does not appear overloaded
-hx resolved NICM
Data Reviewed
-
EKG: Tracing Personally Visualized and interpreted (SB with PAC's [address] Scan: Report Reviewed by me (head CT 01/26/25: No acute intracranial abnormality noted.)
Medical Tests (Nuc Med, Echo etc): Report Reviewed by me (08/15/24: Normal left ventricular chamber size. Normal left ventricular systolic function. Left ventricular ejection fraction is 73%, by Clark's method. Enlarged right ventricular size.
Normal right ventricular systolic function. No significant valvular disease. )
Labs: Labs Reviewed by me
--- NOTE | 2025-01-29 13:41 | CON.NEURO ---
Consultation
Order
Date of Consultation: 01/29/25
Requesting Provider: Lynn Leach CRNP
Reason for Consult: Dizziness
Neurology Consultation Note.
HPI: This is a 70-year-old RH man who presented to [facility] on 01/29/2025 with dizziness. According to the patient he woke up in the middle of the night with severe dizziness, describing his head as 'spinning.' The patient had to
stagger to the bathroom due to loss of balance. He hoped the symptoms would subside, but they persisted through the night and into the morning.
The vertigo was constant rather than intermittent, with no specific positional triggers noted. No reports of nausea, emesis, change in speech, visual, sensory or motor symptoms. The patient also denies recent head trauma or fever.
Mr. Magaña experienced sudden visual changes while driving. 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 This episode resolved within about 5 minutes, but shortly after, he experienced dizziness and staggering. The visual
disturbance and imbalance gradually improved over the course of that day, with complete resolution by the following day. The patient was seen at [place] [facility] with recommended to reduce his beta-.adi
ER VS: 152/81, 43�39, afebrile
EKG: Sinus bradycardia, QTcB Int : 436 ms
PDMP:none
Labs: Glucose�120, normal sodium, WBCs, platelets, creatinine�1.1,
CT head wo contrast�unremarkable
PMH: PA-fib, NICM, HTN, DLP, GERD, gout, polyneuropathy, BMI 36
PSH:pulmonary vein isolation, left knee arthroplasty, left shoulder reconstruction, bilateral cataract surgery
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
FH: Noncontributory to current presentation
All:NKDA
ROS: General: Negative for fever.
HEENT: Positive for dizziness, vertigo, and imbalance. Negative for change in speech, swallowing difficulties, drooling, and ear pain.
Cardiovascular: Negative for chest pain.
Neurological: Positive for visual disturbances. Negative for weakness on either side, headaches, and numbness/tingling except in feet due to neuropathy.
Musculoskeletal: Positive for neck pain and stiffness.
General: Well developed. In no acute distress.
Cardio: Regular rate and rhythm without murmur. Extremities are without cyanosis or edema.
Neuro:
Mental Status: Alert, oriented to person, place, and date. Normal attention and recall. Good fund of knowledge. Follows complex requests across the midline. Comprehension, naming, and repetition intact. Immediate and delayed recall 3/3.
Cranial Nerves: Pupils are equally round and reactive to light. EOMs full. Visual luev[place] full to confrontation. No ptosis. No nystagmus. V1-V3 intact to light touch and pinprick bilaterally, symmetric. Face symmetric. Poor hearing AU. The
palate elevated well. SCMs and traps 5/5. Tongue midline. No dysarthria.
Motor: Normal bulk and tone. No pronator or arm drift. Strength 5/5 throughout. No clonus.
Reflexes: 2+ throughout the upper extremities and trace in the knees. Plantar responses flexor bilaterally.
Sensory: Absent vibration at the toes and ankles
Coordination: No dysmetria or tremor.
Gait: deferred
Assessment and Plan:
I. Recurrent vertigo
II. Sinus bradycardia
III. PA-fib
IV. Distal symmetric large fiber polyneuropathy
- Continue Telemetry monitoring
- Hold Eliquis and continue aspirin 81 mg once a day
- Brain MRI without rivas, CTA head and neck
- Please check LDL
- PT.
- DVT prophylaxis.
I personally reviewed all radiology and labs along with past medical records pertinent to current medical problems. Total time spent in patient care is 55 minutes.
Thank you for allowing us to participate in the care of this patient. We will continue to follow. Please do not hesitate to contact us with any questions or concerns.
Subjective/Objective
Subjective Data
Date of Service: January 29, 2025
Objective Data
Vital Signs
Temp Pulse Resp BP Pulse Ox
36.4 C 39 17 120/57 98
01/29/25 10:56 01/29/25 12:15 01/29/25 12:15 01/29/25 12:00 01/29/25 12:15
Lab Results
01/29/25 11:21
01/29/25 11:21
Sodium 141 mmol/L (135-145) 01/29/25 11:21
Potassium 4.4 mmol/L (3.5-5.1) 01/29/25 11:21
BUN 27 mg/dl (9-20) H 01/29/25 11:21
Glucose 120 mg/dl (70-99) H 01/29/25 11:21
Calcium 9.8 mg/dl (8.4-10.2) 01/29/25 11:21
Patient Allergies
No Known Allergies Allergy (Verified 01/29/25 10:58)
Medications
-
Home Medications
�Medication �Instructions �Recorded
apixaban 5 mg tablet (Eliquis) 5 mg PO BID #60 tabs 02/15/19
pantoprazole 40 mg tablet,delayed 40 mg PO DAILY #30 tabs 02/15/19
release
atorvastatin 10 mg tablet 10 mg PO QPM 06/13/19
metoprolol succinate 50 mg 50 mg PO HS 06/13/19
tablet,extended release 24 hr
(Toprol XL)
furosemide 40 mg tablet (Lasix) 40 mg PO DAILY #30 tabs 01/13/21
allopurinol 100 mg tablet 100 mg PO QPM 01/29/25
allopurinol 300 mg tablet 300 mg PO DAILY 01/29/25
colchicine 0.6 mg tablet 0.6 mg PO DAILY 01/29/25
gabapentin 300 mg capsule 600 mg PO HS 01/29/25
Vital Signs and Labs
-
Vital Signs and Labs:
Vital Signs
Temp Pulse Resp BP Pulse Ox
36.4 C 41 18 125/102 95
01/29/25 10:56 01/29/25 14:15 01/29/25 14:15 01/29/25 15:00 01/29/25 14:15
Lab Results
01/29/25 11:21
01/29/25 11:21
Sodium 141 mmol/L (135-145) 01/29/25 11:21
Potassium 4.4 mmol/L (3.5-5.1) 01/29/25 11:21
BUN 27 mg/dl (9-20) H 01/29/25 11:21
Glucose 120 mg/dl (70-99) H 01/29/25 11:21
Calcium 9.8 mg/dl (8.4-10.2) 01/29/25 11:21
Home Medications
-
Home Medications
apixaban 5 mg tablet (Eliquis) 5 mg PO BID #60 tabs 02/15/19
pantoprazole 40 mg tablet,delayed release 40 mg PO DAILY #30 tabs 02/15/19
atorvastatin 10 mg tablet 10 mg PO QPM 06/13/19
metoprolol succinate 50 mg tablet,extended release 24 hr (Toprol XL) 50 mg PO HS 06/13/19
furosemide 40 mg tablet (Lasix) 40 mg PO DAILY #30 tabs 01/13/21
allopurinol 100 mg tablet 100 mg PO QPM 01/29/25
allopurinol 300 mg tablet 300 mg PO DAILY 01/29/25
colchicine 0.6 mg tablet 0.6 mg PO DAILY 01/29/25
gabapentin 300 mg capsule 600 mg PO HS 01/29/25
--- NOTE | 2025-01-29 16:55 | PTCARENOTE ---
Received pt from ER via stretcher, accompanied by volunteer. Pt AAO x3, CELESTIN well, denies weakness/dizziness; states he feels 'A little woozy' at times with OOB activity. Able to ambulate to BR/bed with minimal assistance. Fall prec initiated.
NIHSS 1- pt c/o slight decreased sensation to LLE- states it 'Has been this way since my knee was replaced. VSS. Telemetry:sinus jude 40's. On room air- pulse ox 98%, no SOB noted. Abd obese, soft, pt passed swallow eval, to start chol lowering
diet. Voided in BR upon arrival to unit. Skin tanned, afebrile; W/D/I. Oriented to 4East, currently resting comfortably. Will continue to monitor.
[2025-01-29] MEDS: ZYLOPRIM 100 MG PO (17:48)
[2025-01-29] MEDS: LOW STRENGTH ASPIRIN 81 MG PO (17:48)
[2025-01-29] MEDS: NEURONTIN 600 MG PO (21:18)
[2025-01-30] VITALS (10 sets, daily range): BP systolic 107–138; BP diastolic 70–80; PULSE 48–61; O2SAT 96; BMI 36.8
--- NOTE | 2025-01-30 06:00 | PTCARENOTE ---
Pt found ambulating w/walker back to bed from BR. States that his head was spinning and he felt nausea before getting up. States he sat on edge of bed until feeling a bit better and then felt he should use walker. Pt was told at beginning of shift
to call first in situations like that. Reminded and states that he will if should recur. Monitor strips from this time put in chart; rhythm irregular w/some PVC's - A fib? Now again SB 40's - 50's.
--- NOTE | 2025-01-30 08:49 | W.PN.CD ---
Today's Communication / Plan
-
Follow telemetry HRs controlled
Likely benefit from eval/treatment with vestibular therapy
Impression / Plan
-
Dizziness/LH, vision changes, room spinning:
-neuro consulted; CTA and MRI pending
-obtain echo, follow telemetry
-check orthos
-vision changes and room spinning don't sound consistent with symptomatic bradycardia, but dizziness/LH could be- see below
- GIven symptoms consistent with vestibular systems recommend eval/treatment with Vestibular therapy
Bradycardia:
-BB held
-all sinus, as well as PAC's so far. HR 40's-50's in ER. He does have a history of sinus bradycardia on my review of EKG's, as well as RBBB.
-check thyroid studies
-follow telemetry HR appears OK
PAF/flutter:
-stable in SR, metoprolol held. It sounds like he still has had PAF/AFL since ablation 2019.
-continue Eliquis for OAC -[id number] score is at least 3 for age, CHF, HTN
HFpEF:
-chronic, stable
-does not appear overloaded
-hx resolved NICM
Physical Exam
Vital Signs/Labs
Vital Signs
Temp Pulse Resp BP Pulse Ox
97.5 F 50 18 111/70 97
01/30/25 03:09 01/30/25 03:09 01/30/25 03:09 01/30/25 03:09 01/30/25 03:09
01/29/25 01/30/25 01/31/25
06:59 06:59 06:59
Actual Weight 279 lb 2 oz
01/29/25 11:21
01/29/25 11:21
Physical Exam
Constitutional: No acute distress
EENT: Anicteric
Cardiovascular: Rhythm & rate is regular
Respiratory: Respiratory effort normal and Lungs clear to auscul.
GI: Soft
Neuro/Psych: AO x 3
Data Reviewed
-
Date of Service: January 30, 2025
Medical Decision Making: Reviewed Test Results
EKG: Tracing Personally Visualized and interpreted (sr)
Echo: Report Reviewed by me
Labs: Labs Reviewed by me
[2025-01-30 08:57] LABS: HDL Cholesterol 32 mg/dl; LDL Cholesterol, Calculated 92 mg/dl; Very Low Density Lipoprotein 37 mg/dl (0-30)
[2025-01-30] MEDS: LOW STRENGTH ASPIRIN 81 MG PO (09:42)
[2025-01-30] MEDS: PROTONIX 40 MG PO (09:43)
[2025-01-30] MEDS: COLCHICINE 0.6 MG PO (09:43)
[2025-01-30] MEDS: ZYLOPRIM 300 MG PO (09:43)
[2025-01-30] MEDS: ANTIVERT 12.5 MG PO (09:43)
--- NOTE | 2025-01-30 09:55 | W.PN.NEURO.1 ---
Today's Communication / Plan
-
.
Subjective/Objective
Subjective Data
Date of Service: January 30, 2025
Neurology follow-up note.
24-hour events: Bradycardic down to 39, afebrile.
Mr. Magaña endorses transient vertigo that occurred in the morning when the patient sat up no associated nausea, change in speech, vision, strength or sensation.
CTA head/neck-no southern [place] of [place] region aneurysm or stenosis.
PMH: PA-fib, NICM, HTN, DLP, GERD, gout, polyneuropathy, BMI 36
PSH:pulmonary vein isolation, left knee arthroplasty, left shoulder reconstruction, bilateral cataract surgery
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
FH: Noncontributory to current presentation
All:NKDA
ROS: HEENT: Negative for ear pain.
Cardiovascular: Negative for chest pain, palpitations.
Neurological: Positive for spinning sensation upon sitting up. Negative for headache.
afebrile
General: Well developed. In no acute distress.
Cardio: Regular rate and rhythm without murmur. Extremities are without cyanosis or edema.
Neuro:
Mental Status: Alert, oriented to person, place, and date. Normal attention and recall. Good fund of knowledge. Follows complex requests across the midline. Comprehension, naming, and repetition intact. Immediate and delayed recall 3/3.
Cranial Nerves: Pupils are equally round and reactive to light. EOMs full. Visual luevano full to confrontation. No ptosis. No nystagmus. V1-V3 intact to light touch and pinprick bilaterally, symmetric. Face symmetric. Poor hearing AU. The
palate elevated well. SCMs and traps 5/5. Tongue midline. No dysarthria.
Motor: Normal bulk and tone. No pronator or arm drift. Strength 5/5 throughout. No clonus.
Coordination: No dysmetria or tremor.
Gait: deferred
Assessment and Plan:
I. BPPV
II. Sinus bradycardia
III. PA-fib
IV. Distal symmetric large fiber polyneuropathy
- Continue Telemetry monitoring
- Restart Eliquis for stroke prophylaxis
- Will follow-up brain MRI
- PT.
- Meclizine as needed
- DVT prophylaxis.
- Outpatient ENT evaluation
- Please recall neurology service with any questions or concerns.
I personally reviewed all radiology and labs along with past medical records pertinent to current medical problems. Total time spent in patient care is 36 minutes.
Thank you for allowing us to participate in the care of this patient. Please do not hesitate to contact us with any questions or concerns.
Objective Data
Vital Signs
Temp Pulse Resp BP Pulse Ox
36.4 C 51 18 122/80 98
01/30/25 07:00 01/30/25 07:00 01/30/25 07:00 01/30/25 07:00 01/30/25 07:00
Lab Results
01/29/25 11:21
01/29/25 11:21
Sodium 141 mmol/L (135-145) 01/29/25 11:21
Potassium 4.4 mmol/L (3.5-5.1) 01/29/25 11:21
BUN 27 mg/dl (9-20) H 01/29/25 11:21
Glucose 120 mg/dl (70-99) H 01/29/25 11:21
Calcium 9.8 mg/dl (8.4-10.2) 01/29/25 11:21
LDL Cholesterol, Calc 92 mg/dl 01/30/25 07:54
Patient Allergies
No Known Allergies Allergy (Verified 01/29/25 16:16)
Vital Signs and Labs
-
Vital Signs and Labs:
Vital Signs
Temp Pulse Resp BP Pulse Ox
36.4 C 51 18 122/80 98
01/30/25 07:00 01/30/25 07:00 01/30/25 07:00 01/30/25 07:00 01/30/25 07:00
Lab Results
01/29/25 11:21
01/29/25 11:21
Sodium 141 mmol/L (135-145) 01/29/25 11:21
Potassium 4.4 mmol/L (3.5-5.1) 01/29/25 11:21
BUN 27 mg/dl (9-20) H 01/29/25 11:21
Glucose 120 mg/dl (70-99) H 01/29/25 11:21
Calcium 9.8 mg/dl (8.4-10.2) 01/29/25 11:21
LDL Cholesterol, Calc 92 mg/dl 01/30/25 07:54
Medications
-
Medications:
Generic Name Dose Route Start Last Admin
Trade Name Freq PRN Reason Stop Dose Admin
Acetaminophen 650 mg 01/29/25 15:53
Acetaminophen 650 Mg Rectal Suppository RECTAL 02/26/25 15:52
Q4HPRN PRN
[place], mild pain, or temp >100.4F
Acetaminophen 650 mg 01/29/25 15:53
Acetaminophen 325 Mg Tablet PO 02/26/25 15:52
Q4HPRN PRN
[place], mild pain, or temp >100.4F
Allopurinol 100 mg 01/29/25 18:00 01/29/25 17:48
Allopurinol 100 Mg Tablet PO 02/26/25 17:59 100 mg
QPM CHRISTOPH Administration
Allopurinol 300 mg 01/30/25 08:00 01/30/25 09:43
Allopurinol 300 Mg Tablet PO 02/27/25 07:59 300 mg
DAILY CHRISTOPH Administration
Alprazolam 0.5 mg 01/30/25 10:20
Alprazolam 0.5 Mg Tablet PO 02/27/25 10:19
ONCE PRN
give 30 mins prior to MRI
Apixaban 5 mg 01/29/25 20:00
Apixaban (Eliquis) 5 Mg Tablet PO 02/26/25 19:59
On Hold: 01/29/25 20:00 BID CHRISTOPH
Aspirin 81 mg 01/29/25 17:00 01/30/25 09:42
Aspirin 81 Mg Chewable Tablet PO 02/26/25 16:59 81 mg
DAILY CHRISTOPH Administration
Colchicine 0.6 mg 01/30/25 08:00 01/30/25 09:43
Colchicine 0.6 Mg Tablet PO 02/27/25 07:59 0.6 mg
DAILY CHRISTOPH Administration
Furosemide 40 mg 01/30/25 08:00
Furosemide 40 Mg Tablet PO 02/27/25 07:59
DAILY CHRISTOPH
Gabapentin 600 mg 01/29/25 22:00 01/29/25 21:18
Gabapentin 300 Mg Capsule PO 02/26/25 21:59 600 mg
HS CHRISTOPH Administration
Meclizine HCl 12.5 mg 01/30/25 09:18 01/30/25 09:43
Meclizine 12.5 Mg Tablet PO 02/27/25 09:17 12.5 mg
Q8HPRN PRN Administration
dizziness
Pantoprazole Sodium 40 mg 01/30/25 08:00 01/30/25 09:43
Pantoprazole 40 Mg Delayed Release Tablet PO 02/27/25 07:59 40 mg
DAILY CHRISTOPH Administration
Sodium Chloride 0 flush 01/29/25 16:00
Sodium Chloride 0.9% (Flush) Syringe IV 02/26/25 15:59
PER PROTOCOL CHRISTOPH
Home Medications
-
Home Medications
apixaban 5 mg tablet (Eliquis) 5 mg PO BID #60 tabs 02/15/19
pantoprazole 40 mg tablet,delayed release 40 mg PO DAILY #30 tabs 02/15/19
atorvastatin 10 mg tablet 10 mg PO QPM High Cholesterol 06/13/19
metoprolol succinate 50 mg tablet,extended release 24 hr (Toprol XL) 50 mg PO HS Heart Disease/Condition 06/13/19
furosemide 40 mg tablet (Lasix) 40 mg PO DAILY #30 tabs 01/13/21
allopurinol 100 mg tablet 100 mg PO QPM Gout 01/29/25
allopurinol 300 mg tablet 300 mg PO DAILY Gout 01/29/25
colchicine 0.6 mg tablet 0.6 mg PO DAILY Gout 01/29/25
gabapentin 300 mg capsule 600 mg PO HS Neurological Condition 01/29/25
[2025-01-30 09:59] LABS: Glycohemoglobin (HgbA1c) 5.6 % (4.0-5.6)
--- NOTE | 2025-01-30 12:49 | W.PN.HOSP.TC ---
Today's Communication/Plan
-
Assessment / Plan
Assessment / Plan
General: No Apparent Distress, Comfortable and Conversant
HEENT: NormoCephalic, Moist mucous membranes, Atraumatic
Respiratory: Clear and Non Labored Respirations
Cardiac: S1/S2 and Regular Rhythm; No Rub or Gallop
GI: Soft, Non Tender, Non Distended and Normal Bowel Sounds
Musculoskeletal: No Edema, no deformity
Skin: Warm and dry
: NO Bradley
Neuro: Awake, Alert, Nonfocal/grossly intact, no nystagmus
Psych: Calm and Intact Judgment/Insight
Mr. Magaña is a 70-year-old male with a medical history of nonischemic cardiomyopathy (recovered EF), paroxysmal A-fib (ablation 2019, on Eliquis), RBBB, KRISTINE (does not tolerate CPAP), and GERD who presented after multiple episodes of room spinning.
Seems to be mostly positional. CT brain is unremarkable. He has notably been bradycardic. He has been admitted for further evaluation and management.
Vertigo:
- Suspect BPPV
- MRI brain pending
- Symptomatic control with meclizine as needed
- Will need outpatient evaluation by ENT for vestibular therapy
- Holding beta-adi in case his bradycardia is contributing to the symptoms
- Recent echocardiogram 08/15/2024 does not indicate any abnormalities that would contribute to the symptoms
- Appreciate cardiology and neurology input
- Orthostatic vital signs normal
- PT/OT following
- TSH WNL
A-fib:
- Paroxysmal
- Continue anticoagulation with Eliquis
- Holding home metoprolol succinate due to bradycardia
- Will need ongoing outpatient cardiology follow-up
DVT prophylaxis: Eliquis
CODE STATUS: Full code
Total time spent on today's encounter was 46 minutes
Anticipated Discharge: 24 - 48 hours
Subjective/Interval History
-
Date of Service: January 30, 2025
Patient was seen and examined at bedside this morning. Has been bradycardic on telemetry down to the low 40s. Had an episode of lightheadedness/dizziness this morning when ambulating to the bathroom requiring the assistance of his walker.
Awaiting MRI.
Objective Data
-
Vital Signs:
Vital Signs
Temp Pulse Resp BP Pulse Ox
97.5 F 56 18 137/78 96
01/30/25 12:13 01/30/25 12:13 01/30/25 12:13 01/30/25 12:13 01/30/25 12:13
I&O
01/29/25 01/30/25 01/31/25
06:59 06:59 06:59
Intake Total 780 / 780
Balance 780 / 780
Review of Systems
-
History Source: Patient
All other systems: Reviewed and negative
Neuro: Reports Dizzy and Lightheadedness
Physical Exam
-
General: No Apparent Distress
[2025-01-30] MEDS: LASIX PO (13:12)
[2025-01-30] MEDS: XANAX 0.5 MG PO (14:00)
--- NOTE | 2025-01-30 14:07 | PTCARENOTE ---
10 beats of VTach noted on tele. patient Asymptomatic. Courtesy Booth Cashier and hospitalist made aware. Plan of care ongoing.
--- NOTE | 2025-01-30 16:44 | CM ---
Reviewed chart. Met with pt and bedside. IA completed. IMM given and placed on chart. Lives in 2-story home with with 1 step at the entrance,13 steps inside the home. BR is on 2nd floor. NO Hx of O2 or SNF. Has DME but none of it is in
use_ [place] walker, SPC and CPAP. Hx of [facility] after knee surgery through [facility]. No insecurities identified. Confirmed PCP, Rx, insurance and no drug coverage
PCP: Chiki Mantilla
Rx: [facility] in [place]
Plan: Home no needs
[2025-01-30] MEDS: ZYLOPRIM 100 MG PO (16:55)
[2025-01-30] MEDS: ELIQUIS 5 MG PO (20:20)
[2025-01-30] MEDS: NEURONTIN 600 MG PO (20:20)
[2025-01-31 03:03] VITALS: BP 119/69
[2025-01-31 06:00] VITALS: BMI 37.1
[2025-01-31 07:00] VITALS: BP 126/74
[2025-01-31] MEDS: LOW STRENGTH ASPIRIN 81 MG PO (08:16)
[2025-01-31] MEDS: COLCHICINE 0.6 MG PO (08:16)
[2025-01-31] MEDS: LASIX 40 MG PO (08:16)
[2025-01-31] MEDS: ZYLOPRIM 300 MG PO (08:16)
[2025-01-31] MEDS: ANTIVERT 12.5 MG PO (08:16)
[2025-01-31] MEDS: ELIQUIS 5 MG PO (08:16)
[2025-01-31] MEDS: PROTONIX 40 MG PO (08:16)
--- NOTE | 2025-01-31 08:17 | W.PN.CD ---
Today's Communication / Plan
-
Cont to monitor tele while here
Hold BB On discharge
We will sign off please call with questions/concerns.
Impression / Plan
-
Dizziness/LH, vision changes, room spinning:
-neuro consulted; CTA and MRI pending
-obtain echo, follow telemetry
-check orthos
-vision changes and room spinning don't sound consistent with symptomatic bradycardia, but dizziness/LH could be- see below
- GIven symptoms consistent with vestibular systems recommend eval/treatment with Vestibular therapy
Bradycardia:
-BB held
-all sinus, as well as PAC's so far. HR 40's-50's in ER. He does have a history of sinus bradycardia on my review of EKG's, as well as RBBB.
-tsh NORMAL
-follow telemetry HR appears OK
PAF/flutter:
-stable in SR, metoprolol held. It sounds like he still has had PAF/AFL since ablation 2019.
-continue Eliquis for OAC -[id number] score is at least 3 for age, CHF, HTN
NSVT
- noted on monitor had stress about a year ago that showed no obvious ischemia or infarct
- cont to monitor
HFpEF:
-chronic, stable
-does not appear overloaded
-hx resolved NICM
Subjective: Feels OK today still ahve dizziness
Physical Exam
Vital Signs/Labs
Vital Signs
Temp Pulse Resp BP Pulse Ox
97.3 F 47 16 126/74 96
01/31/25 07:00 01/31/25 07:00 01/31/25 07:00 01/31/25 07:00 01/31/25 07:00
01/30/25 01/31/25 02/01/25
06:59 06:59 06:59
Actual Weight 279 lb 2 oz 281 lb 3 oz
01/29/25 11:21
Triglycerides 185 mg/dl (10-149) H 01/30/25 07:54
LDL Cholesterol, Calc 92 mg/dl 01/30/25 07:54
VLDL Cholesterol, Calc 37 mg/dl (0-30) H 01/30/25 07:54
HDL Cholesterol 32 mg/dl 01/30/25 07:54
Physical Exam
Constitutional: No acute distress and Comfortable
EENT: Anicteric
Cardiovascular: Rhythm & rate is regular and Pedal edema is absent
Respiratory: Respiratory effort normal and Lungs clear to auscul.
GI: Soft
Neuro/Psych: AO x 3
Data Reviewed
-
Date of Service: January 31, 2025
Medical Decision Making: Reviewed Test Results
EKG: Tracing Personally Visualized and interpreted (sr )
Echo: Tracing Personally Visualized and interpreted
Labs: Labs Reviewed by me
[2025-01-31 08:20] LABS: Blood Urea Nitrogen 17 mg/dl (9-20); Calcium 9.3 mg/dl (8.4-10.2); Carbon Dioxide 25 mmol/L (22-30); Chloride 109 mmol/L (98-107); Estimated Creatinine Clearance 108 ml/min; Glucose 102 mg/dl (70-99); Magnesium 2.1 mg/dl (1.6-2.3); Potassium 4.3 mmol/L (3.5-5.1); Sodium 139 mmol/L (135-145); eGFR > 60.00
--- NOTE | 2025-01-31 10:39 | W.DCSUMMARY ---
Discharge Summary
Discharge Data
Date of Admission: 01/29/25
Date of Discharge: 01/31/25
Total time spent discharging patient (in min): 48
-
Pending Results: No
Hospital Course
Mr. Magaña is a 70-year-old male with a medical history of nonischemic cardiomyopathy (recovered EF), paroxysmal A-fib (ablation 2019, on Eliquis), RBBB, KRISTINE (does not tolerate CPAP), and GERD who presented after multiple episodes of room spinning.
Seems to be mostly positional. CT brain is unremarkable. He has also notably been bradycardic. He was admitted for further evaluation and management.
MRI brain showed no evidence of stroke. His symptoms are consistent with peripheral vertigo potentially from inner ear inflammation. His beta-adi was held in case his bradycardia was contributing to his symptoms. Recent echocardiogram on
08/15/2024 did not indicate any abnormalities that would contribute to his symptoms. His orthostatic vital signs were normal and thyroid studies were within normal limits. He will need outpatient evaluation by ENT for vestibular therapy. He was
evaluated inpatient by cardiology and neurology who agree with the above-mentioned plan. Physical and Occupational Therapy worked with him and also recommend outpatient vestibular therapy. He will be given prescriptions for meclizine to use as
needed for dizziness and a short steroid taper which may help with his symptoms. At the time of hospital discharge he was medically stable. He will need to follow-up with his primary care physician.
General: No Apparent Distress, Comfortable and Conversant
HEENT: NormoCephalic, Moist mucous membranes, Atraumatic
Respiratory: Clear and Non Labored Respirations
Cardiac: S1/S2 and Regular Rhythm; No Rub or Gallop
GI: Soft, Non Tender, Non Distended and Normal Bowel Sounds
Musculoskeletal: No Edema, no deformity
Skin: Warm and dry
: NO Bradley
Neuro: Awake, Alert, Nonfocal/grossly intact, no nystagmus
Psych: Calm and Intact Judgment/Insight
Discharge Plan
-
Patient Disposition: Home (Routine Discharge)
Discharge Diagnosis/Procedures: Vertigo
Activity Restrictions/Additional Instructions:
Mr. Magaña is a 70-year-old male with a medical history of nonischemic cardiomyopathy (recovered EF), paroxysmal A-fib (ablation 2019, on Eliquis), RBBB, KRISTINE (does not tolerate CPAP), and GERD who presented after multiple episodes of room spinning.
Seems to be mostly positional. CT brain is unremarkable. He has also notably been bradycardic. He was admitted for further evaluation and management.
MRI brain showed no evidence of stroke. His symptoms are consistent with peripheral vertigo potentially from inner ear inflammation. His beta-adi was held in case his bradycardia was contributing to his symptoms. Recent echocardiogram on
08/15/2024 did not indicate any abnormalities that would contribute to his symptoms. His orthostatic vital signs were normal and thyroid studies were within normal limits. He will need outpatient evaluation by ENT for vestibular therapy. He was
evaluated inpatient by cardiology and neurology who agree with the above-mentioned plan. Physical and Occupational Therapy worked with him and also recommend outpatient vestibular therapy. He will be given prescriptions for meclizine to use as
needed for dizziness and a short steroid taper which may help with his symptoms. At the time of hospital discharge he was medically stable. He will need to follow-up with his primary care physician.
Referrals:
Miko Kimble DO [Active, ENT]
Referral Note: vertigo, eval for vestibular therapy
Chiki Mantilla DO [Family Provider, Family Practice]
Prescriptions:
New
meclizine 12.5 mg Tablet
12.5 mg PO Q8HPRN PRN (Reason: dizziness) Qty: 20 0RF
methylprednisolone [Medrol (Gee)] 4 mg tablets,dose pack
See Rx Instructions .ROUTE .COMPLEX Qty: 21 0RF
Rx Instructions:
orally per package directions
Continued
pantoprazole 40 MG tablet,delayed release (DR/EC)
40 mg PO DAILY Qty: 30 0RF
Eliquis 5 MG tablet
5 mg PO BID Qty: 60 0RF
atorvastatin 10 MG tablet
10 mg PO QPM
furosemide [Lasix] 40 MG tablet
40 mg PO DAILY Qty: 30 11RF
allopurinol 100 mg Tablet
100 mg PO QPM
gabapentin 300 mg Capsule
600 mg PO HS
allopurinol 300 mg Tablet
300 mg PO DAILY
colchicine 0.6 mg Tablet
0.6 mg PO DAILY
Held
metoprolol succinate [Toprol XL] 50 MG tablet extended release 24 hr
50 mg PO HS
Hold Instructions: Hold for now for bradycardia, follow-up with package collector
Discharge Orders:
Discharge Patient (As Directed); Ordered 01/31/25
Ordered By: Miko Pittman
Discharge Date and Time
Print Language: PORTUGUESE
--- NOTE | 2025-01-31 11:07 | CM ---
Met with pt bedside. Pt is discharged.. Friend will drive pt home today. Scripts for PT/OT given to patient
Plan: DC to home with outpatient PT/OT.
[2025-01-31 11:29] VITALS: BP 127/74
== END 2025-01-31 11:40 | disposition home or self-care (01) | DRG 149 ==
LOC: 4 EAST ACU 13:46
PROVIDERS: Registered Nurse; ADMITTING PHYSICIAN Hospitalist; ATTENDING PHYSICIAN Internal Medicine; CONSULT PHYSICIAN Psychiatry & Neurology Neurology; CONSULT PHYSICIAN Student in an Organized Health Care Education/Training Program; EMERGENCY PHYSICIAN Emergency Medicine; FAMILY PHYSICIAN Family Medicine
DX: H81.10 Benign paroxysmal vertigo, unspecified ear (principal); I42.8 Other cardiomyopathies; I50.32 Chronic diastolic (congestive) heart failure; I48.0 Paroxysmal atrial fibrillation; I45.10 Unspecified right bundle-branch block; G47.33 Obstructive sleep apnea (adult) (pediatric); K21.9 Gastro-esophageal reflux disease without esophagitis; Z79.01 Long term (current) use of anticoagulants; E78.00 Pure hypercholesterolemia, unspecified; G47.30 Sleep apnea, unspecified; M48.00 Spinal stenosis, site unspecified; Z96.652 Presence of left artificial knee joint; Z79.899 Other long term (current) drug therapy; E66.9 Obesity, unspecified; Z68.37 Body mass index [BMI] 37.0-37.9, adult; G62.9 Polyneuropathy, unspecified; I11.0 Hypertensive heart disease with heart failure; Z82.49 Family history of ischemic heart disease and other diseases of the circulatory system
CPT/HCPCS: 70496; 70498; 70551; 80048; 80053; 80061; 83036; 83735; 84443; 85025; 93005; 93306; 97112; 97162; 97166; 99283; Q9967